=== PATIENT | male | born 1960 | race Hispanic/Latino ===

== ENCOUNTER → 2025-04-22 | Outpatient (CLI) | payer OTHER ==
--- NOTE | 2025-04-22 21:59 | HMCIMG ---
EXAM: XR Lumbar spine, 4 Views. CLINICAL HISTORY: 65 year old male with a history of vertebrogenic low back pain, radiculopathy, and disk degeneration. COMPARISON: None provided. FINDINGS: BONES: Mild anterolisthesis of L4 on L5 is noted. Cholecystectomy clips are seen. DISCS/DEGENERATIVE CHANGES: Mild degenerative changes are present. SOFT TISSUES: No prevertebral soft tissue swelling evident in the lumbar spine. The visualized lungs appear clear. IMPRESSION: 1. Mild anterolisthesis of L4 on L5. 2. Mild degenerative changes. /[place]
== END | disposition home or self-care (01) ==
LOC: RAH 11:29
PROVIDERS: ATTEND Physical Medicine & Rehabilitation
DX: M47.26 Other spondylosis with radiculopathy, lumbar region (principal); M51.16 Intervertebral disc disorders with radiculopathy, lumbar region; M54.51 Vertebrogenic low back pain; M51.369 Other intervertebral disc degeneration, lumbar region without mention of lumbar back pain or lower extremity pain; M43.16 Spondylolisthesis, lumbar region; Z90.49 Acquired absence of other specified parts of digestive tract
CPT/HCPCS: 72114